=== PATIENT | female | born 2000 ===

== ENCOUNTER 2023-08-18 19:21 | Outpatient (REF) | payer BC, SELFPAY ==
[2023-08-25 15:08] LABS: Age Gdln ACOG Testing Note (.); IGP, rfx Aptima HPV ASCU Note (.)
== END 2023-08-18 19:22 | disposition home or self-care (01) ==
LOC: LAB 19:21
PROVIDERS: Visit Provider Physician Assistant
DX: Z01.419 Encounter for gynecological examination (general) (routine) without abnormal findings (principal)
CPT/HCPCS: G0145